=== PATIENT | female | born 1950 | race Caucasian/White ===

== ENCOUNTER → 2016-11-02 | Outpatient (CLI) | payer MEDICARE, OTHER ==
--- NOTE | 2016-11-02 14:57 | REP ---
Left rib series: Five views including PA chest. History: Contusion. Difficulty breathing. Comparison study: January 30, 2009. Findings: PA chest radiograph shows no evidence of pneumothorax or hydrothorax. There is a mild peripheral pattern of interstitial fibrosis which appears a little more prominent than on the 2009 prior study. No focal infiltrate or atelectasis is seen. No pleural effusion is noted. Multiple views of the left rib cage demonstrate diffuse osteopenia. There is a cortical discontinuity in the anterolateral end of the left 7th rib consistent with a nondisplaced fracture. No other rib fracture is appreciated. There are mild degenerative changes in the thoracic spine. Impression: 1. Nondisplaced fracture left anterolateral 7th rib. 2. Diffuse osteopenia. 3. Mild diffuse interstitial fibrosis pattern in the lung [place]. Signed by Porfirio Chapin MD 11/02/2016 03:15 P
== END ==
LOC: M WUC 14:20
PROVIDERS: ATTEND Physician Assistant
DX: S20.212A Contusion of left front wall of thorax, initial encounter (principal); X58.XXXA Exposure to other specified factors, initial encounter; Y92.89 Other specified places as the place of occurrence of the external cause; Y99.9 Unspecified external cause status

== ENCOUNTER → 2018-04-07 | Outpatient (CLI) | payer MEDICARE | LOC: M WUC 13:57 | DX: S60.211A Contusion of right wrist, initial encounter (principal); M19.031 Primary osteoarthritis, right wrist; X58.XXXA Exposure to other specified factors, initial encounter; Y92.9 Unspecified place or not applicable | CPT/HCPCS: 73110 ==

== ENCOUNTER → 2019-04-07 | Outpatient (REF) | payer MEDICARE ==
[2019-04-07 17:59] LABS: C REACTIVE PROTEIN QUANTITATIV 1.72 MG/DL (0.00-0.30); RHEUMATOID FACTOR QUANT < 10.0 IU/ML (<15.0)
[2019-04-08 11:00] LABS: HEPATITIS B SURFACE ANTIGEN NEGATIVE (NEGATIVE)
[2019-04-08 11:26] LABS: HEPATITIS C VIRUS ABY INDEX 0.1 INDEX (<0.8)
[2019-04-08 11:27] LABS: HEPATITIS B CORE ANTIBODY IGM NEGATIVE (NEGATIVE)
[2019-04-08 11:30] LABS: HEPATITIS A ANTIBODY IGM NEGATIVE (NEGATIVE)
[2019-04-11 07:22] LABS: ANTINUCLEAR ANTIBODIES DIRECT Negative (Negative); CYCLIC CITRULLINATED PEPTIDE 7 units (0-19); Lyme Disease IgG/IgM Antibodie <0.91 ISR (0.00-0.90); Lyme Disease IgM Ab Quantitati <0.80 index (0.00-0.79)
== END ==
LOC: M LAB REF 17:26
PROVIDERS: ATTEND Nurse Practitioner Adult Health
DX: M25.50 Pain in unspecified joint (principal)

== ENCOUNTER → 2020-05-22 | Outpatient (CLI) | payer MEDICARE ==
--- NOTE | 2020-05-22 09:30 | REP ---
INDICATION: INTERNAL DERANGEMENT OF LT SHOULDER. COMPARISON: Radiographs 05/07/2020. TECHNIQUE: Coronal oblique T1, T2 fat sat, sagittal oblique T2 fat sat, axial T2 fat sat, gradient echo. FINDINGS: Rotator cuff: There is mild tendinopathy/tendinitis of the supraspinatus tendon with a focal partial tear at the anterior leading edge. Acromioclavicular joint: There are mild hypertrophic degenerative changes of the acromioclavicular joint. Acromion: Type 2 Biceps Tendon: In bicipital groove, no tenosynovitis. Hill Sach's deformity: None. Deltoid muscle: No abnormal signal. Biceps labral complex: There is fraying of the biceps labral complex. Labrum: There may be a partial tear of the superior labrum. Cartilage: There is moderate diffuse chondromalacia at the glenohumeral joint. Bone marrow: There is diffuse marrow edema in the medial aspect of the humeral head and neck, with serpiginous curvilinear low signal in the superomedial humeral head compatible with advanced avascular necrosis. There is flattening of the cortical surface of the medial aspect of the humeral head. There is mild spurring of the inferior medial humeral head. Joint fluid: There is a small joint effusion. IMPRESSION: Mild tendinopathy/tendinitis of the supraspinatus tendon with a focal partial tear at the anterior leading edge. There is fraying of the biceps labral complex, with possible partial tear of the superior labrum. Diffuse marrow edema of the medial humeral head and neck, with associated abnormal signal compatible with advanced avascular necrosis. Arthritic changes glenohumeral joint. Small joint effusion. <Electronically signed by Taj Miller > 05/22/20 [id number]
== END ==
LOC: M RAD 06:36
PROVIDERS: ATTEND Internal Medicine
DX: M24.812 Other specific joint derangements of left shoulder, not elsewhere classified (principal); M94.212 Chondromalacia, left shoulder